=== PATIENT | male | born 1980 | race Caucasian/White ===

== ENCOUNTER 2017-12-27 12:49 | Emergency (ER) | payer SELFPAY ==
[~2017-12-27] VITALS: Ht 190.5 cm; Wt 100.0 kg
[~2017-12-27 12:49] MED LIST: CLIN150 PO
[2017-12-27 13:02] VITALS: BP 158/98; PULSE 101; RESP 16; TEMP 98.2; O2SAT 99
--- NOTE | 2017-12-27 13:23 | PD ---
HPI Chief Complaint: ENT Complaint Time Seen by Provider: 13:08 Travel History International Travel<30 days: No Contact w/Intl Traveler<30days: No Traveled to known affect area: No History of Present Illness HPI 37-year-old male presents to the emergency department with complaint of sore throat 2 days. He said he was admitted to a hospital in [place] after having a syncopal episode a few days ago and was told he had pneumonia, and according to him they were not addressing his sore throat so he left AGAINST MEDICAL ADVICE yesterday. Does not know if he has had fever or not. He denies nasal congestion, cough, ear pain. Denies lump in throat, difficulty swallowing, unusual drooling. Says his uvula feels longer than normal and is painful. Rates pain 3/10. Worse with swallowing. No others with similar symptoms. No known relieving factors. Has not tried any medications or treatments to alleviate his symptoms. Primary care provider is Dr. Conti. Allergies to penicillin. Denies significant past medical history. Has no other medical complaints. No other modifying factors or associated signs and symptoms. PFSH Past Medical History Arthritis: No Asthma: No Autoimmune Disease: No Blood Disorders: No Anxiety: No Depression: No Heart Rhythm Problems: No Cancer: No High Cholesterol: No Chemotherapy: No Chest Pain: No Congestive Heart Failure: No COPD: No Cerebrovascular Accident: No Diabetes: No Diminished Hearing: No Endocrine: No Gastrointestinal Disorders: No GERD: No Glaucoma: No Genitourinary: No Headaches: No Hepatitis: No Hypertension: Yes (controlled) Immune Disorder: No Implanted Vascular Access Dvce: No Kidney Stones: No Musculoskeletal: No Neurologic: No Psychiatric: Yes (IV DRUG ABUSE) Reproductive: No Respiratory: No Migraines: No Myocardial Infarction: No Radiation Therapy: No Renal Failure: No Seizures: No Sickle Cell Disease: No Sleep Apnea: No Thyroid Disease: No Ulcer: No Past Surgical History Abdominal Surgery: No AICD: No Appendectomy: No Arteriovenous Shunt: No Cardiac Surgery: No Cholecystectomy: No Ear Surgery: No Endocrine Surgery: No Eye Surgery: No Genitourinary Surgery: No Gynecologic Surgery: No Insulin Pump: No Joint Replacement: No Neurologic Surgery: Yes (JORDAN HOLES) Oral Surgery: No Pacemaker: No Thoracic Surgery: No Other Surgery: Yes Social History Alcohol Use: No Tobacco Use: Yes (OCCASSIONALLY) Substance Use: Yes (RELAPSED LAST WEEK USING IV HEROINE) Allergies-Medications (Allergen,Severity, Reaction): Coded Allergies: penicillin G (Unverified Allergy, Severe, THROAT SWELLS, 12/27/17) Reported Meds & Prescriptions Reported Meds & Active Scripts Active Ibuprofen 800 Mg Tab 800 Mg PO Q6HR PRN Magic Mouthwash Pediatric/Adult Liq (Lidocaine/Diphenhydr/Alum/Mg/Simeth) 60 Ml Susp 5 Ml SWISH-SWAL Q3HR PRN Each 5mL contains: Diphenydramine 4.5mg, Viscous Lidocaine 2% 10mg, Maalox Advanced Regular Strength 2.7ml Azithromycin 500 Mg Tab 500 Mg PO DAILY Physical Exam Narrative GENERAL: Well-nourished, well-developed male patient, in no acute distress; afebrile, nontoxic-appearing SKIN: Warm and dry. No rash. HEAD: Atraumatic. Normocephalic. EYES: Pupils equal and round. No scleral icterus. No injection or drainage. ENT: Mucosa pink and moist. No tonsillar edema, erythema or exudates. Uvula is mildly edematous, erythematous and is covered in exudate. No uvular, palatal , or tonsillar deviation. Airway patent. EARS: Bilateral pinnae and external canals appear within normal limits. Bilateral tympanic membranes without erythema, dullness or perforation. NECK: Trachea midline. No lymphadenopathy. CARDIOVASCULAR: Regular rate and rhythm. No murmur appreciated. RESPIRATORY: No accessory muscle use. Clear to auscultation. Breath sounds equal bilaterally. No retractions or tachypnea. GASTROINTESTINAL: Flat. MUSCULOSKELETAL: No obvious deformities. No clubbing. No cyanosis. No edema. NEUROLOGICAL: Awake and alert. Oriented 3. No obvious cranial nerve deficits. Motor grossly within normal limits. Normal speech. Moves all extremities. 5/5 strength to all extremities. PSYCHIATRIC: Appropriate mood and affect; insight and judgment normal. Data Data Last Documented VS Vital Signs Date Time Temp Pulse Resp B/P (MAP) Pulse Ox O2 Delivery O2 Flow Rate FiO2 12/27/17 13:02 98.2 101 16 158/98 (118) 99 Orders Orders Group A Rapid Strep Screen (12/27/17 13:15) Chest, Pa & Lat (12/27/17 13:15) Strep Culture (Group A) (12/27/17 13:20) Ed Discharge Order (12/27/17 14:27) [facility] Medical Decision Making Medical Screen Exam Complete: Yes Emergency Medical Condition: Yes Medical Record Reviewed: Yes Differential Diagnosis Uvulitis, strep pharyngitis, pneumonia Narrative Course 37-year-old male with uvulitis and concern of pneumonia. He was admitted to the hospital in [place] and was told he was being treated for pneumonia. He left AGAINST MEDICAL ADVICE yesterday because they would not address his sore throat. Rapid strep and chest x-ray ordered. 1413: Rapid strep negative. Chest x-ray unremarkable. Patient provided a copy of the x-ray report. I will prescribe antibiotics secondary to the uvula with mild edema, erythema and exudate, even though the rapid strep is negative. A azithromycin, Magic mouthwash, ibuprofen prescribed for home. Instructed patient to follow up with primary care provider. Patient verbalizes understanding and agreement with treatment plan. Patient is medically cleared and stable for discharge. Discussed reasons to return to the emergency department. Patient agrees with treatment plan. The patients vital signs are stable and the patient is stable for outpatient follow-up and treatment. Patient discharged home, stable and in no acute distress. Diagnosis Primary Impression: Uvulitis Referrals: Primary Care Physician Patient Instructions: General Instructions, Pharyngitis (ED) Departure Forms: Tests/Procedures, Work Release Enter return to work date: Dec 28, 2017 Additional Instructions: Take Antibiotics as prescribed and complete full course of antibiotics Throw away and change your toothbrush 24 hours after starting antibiotics Get plenty of sleep/rest Rest your voice Drink plenty of fluids to prevent dehydration Use warm saltwater gargles to soothe throat pain Use an air humidifier/turn off ceiling fans Use throat lozenges as needed for sore throat Use ibuprofen or acetaminophen as needed to relieve pain and fever Follow-up with your primary care provider within 2-4 days Return immediately to the emergency department with worsening of symptoms Med/Other Pt SpecificInfo: Prescription(s) given Scripts Ibuprofen (Ibuprofen) 800 Mg Tab 800 MG PO Q6HR Y for PAIN, #20 TAB 0 Refills Prov: Teresita Nielsen 12/27/17 Flkigidejvvrxhw-Jwqlmbaik-Lth-Alum-Simeth Liq (Magic Mouthwash Pediatric/Adult Liq) 60 Ml Susp 5 ML SWISH-SWAL Q3HR Y for SORE THROAT, #60 ML 0 Refills Each 5mL contains: Diphenydramine 4.5mg, Viscous Lidocaine 2% 10mg, Maalox Advanced Regular Strength 2.7ml Prov: Teresita Nielsen 12/27/17 Azithromycin (Azithromycin) 500 Mg Tab 500 MG PO DAILY for Infection, #5 TAB 0 Refills Prov: Teresita Nielsen 12/27/17 Disposition: 01 DISCHARGE HOME Condition: Stable Teresita Nielsen Dec 27, 2017 13:23
--- NOTE | 2017-12-27 14:20 | RADRPT ---
EXAM DATE: 12/27/2017 1:30 PM EDT AGE/SEX: 37 years / Male INDICATIONS: Congestion and cold for 4 days. CLINICAL DATA: This is the patient's initial encounter. Patient reports that signs and symptoms have been present for 4 - 6 days and indicates a pain score of 2/10. MEDICAL/SURGICAL HISTORY: None. None. COMPARISON: No prior exams available for comparison. FINDINGS: PA and lateral views of the chest demonstrate a normal-sized cardiac silhouette. There is no effusion , consolidation, or pneumothorax. The bones and soft tissues demonstrate no acute abnormality. CONCLUSION: No acute cardiopulmonary abnormality is identified. Electronically signed by: Alec Tran MD 12/27/2017 2:19 PM EDT
[2017-12-27] MEDS ORDERED: AZIT500T2 PO (14:27)
[2017-12-27] MEDS ORDERED: IBUP1TAB7 PO (14:27)
[2017-12-27] MEDS ORDERED: MAGICPED SWISH-SWAL (14:27)
== END 2017-12-27 15:00 | disposition home or self-care (01) ==
LOC: NEPK 12:49
DX: K12.2 Cellulitis and abscess of mouth (principal); I10 Essential (primary) hypertension; Z79.899 Other long term (current) drug therapy; Z88.0 Allergy status to penicillin; Z72.0 Tobacco use
CPT/HCPCS: 71046; 87081; 87880; 99284